=== PATIENT | female | born 1975 | race Caucasian/White ===

== ENCOUNTER 2023-12-15 08:50 | Outpatient (OUT) | payer BC, SELFPAY ==
--- NOTE | 2023-12-15 08:52 | VEIN_ITS ---
Patient Name: HIPOLITO ELIAS MR#: [id number] : 1975 Exam Date: 12/15/2023 Ordering Doctor: DR MOE HEREDIA M.D. RADIOLOGY REPORT PROCEDURE: [facility]ILITY EST COMPREHENSIVE VEIN C[facility] - OFFICE VISIT INITIAL COMPARISON: None. PROGRESS NOTES: [age] year old female who presents with a 25 year history of dilated bulging veins. The patient's right leg symptoms are worse than the left. There has been a progression of symptoms over past year. This increases with prolonged leg dependency. The patient describes an improvement with rest, elevation, and compression stockings. The patient denies any signs and symptoms to suggest arterial ischemia. The patient describes a family history varicose veins on maternal side. The patient has drinking and smoking history of occasional alcohol consumption; no tobacco use. Patient has a past medical history significant for varicose veins and superficial thrombophlebitis. The patient denies a history of deep venous thrombus or pulmonary embolus. See separate history and physical for medication list. Several prior treatments for varicose veins. Current use of compression stockings. After review of nurse notes, history and physical exam I discussed at length the pathophysiology of venous hypertension and possible treatments, therapies and strategies available. We discussed at length the importance of elevating the lower extremities above the level of the heart, increased physical activity and compression stocking use. Ultrasound venous reflux study performed today was discussed at length with the patient. The report demonstrates an abnormally dilated incompetent radio script writer vein within the medial distal right thigh with a few incompetent branch is which corresponding to patient's area of repeat symptoms. PHYSICAL EXAM: The right leg demonstrates a few varicosities within distal medial thigh, multiple scattered spider veins, no ulceration, no significant edema, no skin discoloration. The left leg demonstrates a few varicosities, multiple scattered spider veins, no ulceration, no edema, no skin discoloration. Both thighs, legs and feet were symmetrically warm to the touch. Good posterior tibial and dorsalis pedis pulses were present bilaterally. VEIN/VC Facility EST Comprehensive IMPRESSION: 1. Bilateral venous insufficiency, right greater than left. 2. Bilateral lower extremity varicose veins 3. No significant lower extremity subcutaneous edema 4. No flow significant arterial disease 5. CEAP: C2, EC, AD, LA PLAN: 1. Continued use of compression stockings 2. Elevated legs and increased physical activity symptomatic relief 3. Endovenous laser ablation of the incompetent markedly dilated radio script writer vein within the distal medial right thigh which corresponds to patient's area of chronic throbbing, itching, reoccurring varicosities. This radio script writer extends directly to the femoral vein which would make treatment with microfoam chemical ablation more difficult. Endovenous laser ablation of the radio script writer is highly preferred. 4. Microfoam chemical ablation of incompetent branch saphenous varicosities in region of right thigh radio script writer vein and of left leg incompetent branch saphenous varicosities. 5. Bilateral sclerotherapy for numerous spider veins. Nurse notes, history and physical were reviewed and confirmed, see attached forms. The nurse was present throughout the physical exam and consultation Dictated by: Ancelmo Krishnan M.D. on 12/15/2023 at 10:33 Approved by: Ancelmo Krishnan M.D. on 12/15/2023 at 12:00
--- NOTE | 2023-12-15 08:52 | VEIN_ITS ---
Patient Name: HIPOLITO ELIAS MR#: [id number] : 1975 Exam Date: 12/15/2023 Ordering Doctor: DR MOE HEREDIA M.D. RADIOLOGY REPORT PROCEDURE: VC EXT VENOUS REFLUX CORINNE LMTD COMPARISON: None. INDICATIONS: I83.813 Bilateral painful varicose veins TECHNIQUE: Duplex imaging of the lower extremity to assess the deep and superficial venous system for the presence of deep or superficial venous incompetence and to document the location and severity of disease. The study includes evaluation of the great saphenous vein (GSV), anterior accessory saphenous vein (AASV) and small saphenous vein (SSV). Patient scanned in reverse Trendelenburg and standing. FINDINGS: RIGHT LOWER EXTREMITY: Saphenofemoral Junction Reflux: YesNo 4.9mm 1.4 sec GSV: Diam (mm) Reflux/ Time (sec) Proximal Thigh N/A Mid Thigh N/A Distal Thigh N/A Prox Calf N/A Mid Calf N/A Saphenopopliteal Junction Reflux: N/A SSV: Proximal Calf N/A Mid Calf 1.3 No AASV: Not present Proximal Thigh Mid Thigh Distal Thigh Thrombi: No acute pr chronic thrombus visualized Compressibility: Normal Flow: Normal Preforator: Dist/med thigh 6.3mm with 1.0s reflux. Tech Note: GSV was previously stripped. SSV treated with prior Varithena treatment. No patent varicose vein visualized. LEFT LOWER EXTREMITY: Saphenofemoral Junction Reflux: No 6.2 mm sec GSV: Diam (mm) Reflux/Time (sec) Proximal Thigh No Mid Thigh Distal Thigh Prox Calf Mid Calf Saphenopopliteal Junction Relux: 4.0 mm No SSV: Proximal Calf 2.3 No Mid Calf 2.3 No AASV: Not present Proximal Thigh Mid Thigh Distal Thigh Thrombi: No acute or chronic thrombus visualized Compressibility: Normal Flow: Normal Credit Or Loans Officer:Mid/med calf 2.9mm with 0.9s reflux. Tech Note: GSV was previously treated. Patent varicose vein mid/med thigh 3.6mm with 1.7s reflux. Patent varicose vein 3.5mm with 0.7s reflux. CONCLUSION: 1. Abnormally dilated incompetent applications development consultant vein within distal medial right thigh patient's area of discomfort. 2. Several mildly dilated and incompetent branch saphenous varicosities bilaterally. Dictated by: Ancelmo Krishnan M.D. on 12/15/2023 at 09:34 Approved by: Ancelmo Krishnan M.D. on 12/15/2023 at 10:33
== END 2023-12-15 08:51 | disposition home or self-care (01) ==
LOC: VC 08:50
PROVIDERS: PCP Radiology Diagnostic Radiology; Visit Provider Radiology Diagnostic Radiology
DX: I83.813 Varicose veins of bilateral lower extremities with pain (principal)
CPT/HCPCS: 93970; G0463

== ENCOUNTER 2024-02-10 12:56 | Outpatient (OUT) | payer BC, SELFPAY ==
--- NOTE | 2024-02-10 13:00 | VEIN_ITS ---
[address] [address] Patient Name: HIPOLITO ELIAS MRN: [id number] date: 1975 Sex: F Assigned Patient Location: Current Patient Location: Accession/Order Number: [id number] Exam Date: 02/10/2024 13:00 Report Date: 02/10/2024 14:31 At the request of: MOE HEREDIA Procedure: VC INJ Foam Sclerosant WUS KOSHER DIETARY SERVICE MANAGER PROCEDURE: VC INJ Foam Sclerosant WUS KOSHER DIETARY SERVICE MANAGER HISTORY: I8.813 Bilateral leg painful varicose veins Pre-operative Diagnosis: CEAP class C2 venous insufficiency with pain, tenderness, edema and incompetent branch saphenous vein(s), chronic venous insufficiency right leg secondary to venous incompetence Post-operative Diagnosis: CEAP class C2 venous insufficiency with pain, tenderness, edema and incompetent branch saphenous vein(s), chronic venous insufficiency right leg secondary to venous incompetence Procedure Performed: 1. Ultrasound-guided microfoam chemical ablation with Varithenaregistered 2. Intraoperative ultrasound guidance Physician: Ancelmo Krishnan M.D. Anesthesia: None Indications for Procedure: 48 year old female. Symptoms including lower extremity pain, throbbing, dilated bulging veins for many years despite conservative medical therapy including medical compression stockings, exercise and analgesics. Prior procedures include microfoam chemical ablation. Multiple incompetent varicosities of the right leg. Duplex scan showed reflux and enlarged diameters up to 5 mm. The patient underwent informed consent including management options where the complications of infection, bleeding, pain, and skin injury were discussed. Particular attention was spent discussing thrombus extension and deep vein thrombosis as well as the possibility of pulmonary embolus and treatment with oral or injectable blood thinners. Procedure: The patient walked to the procedure room. All applicable staff donned appropriate apparel. A procedure timeout was performed to confirm correct patient, correct extremity, correct procedure, and correct room set-up including presence of all applicable supplies, devices, and drugs. A duplex ultrasound, performed by myself confirmed the location and incompetence of branch saphenous varicosities and their course was marked on the skin together with the dilated tributaries. The extent of treatment of the vein and the associated varicosities was determined through ultrasound mapping. The skin was prepped and then punctured with a butterfly needle and advanced under ultrasound guidance. The Varithenaregistered canister was activated and the canister was primed and purged as required in the instructions for use. Varithenaregistered was drawn into a sterile syringe. Varithenaregistered was slowly administered at 0.5-1.0 cc/second with close observation by ultrasound of its course in the vessels. Total volume utilized was: 10 mL (6 mL into a 5 mm varicosity anterior lateral proximal lower leg; 4 mL into a 4 mm varicosity posterior mid calf). Following administration of Varithenaregistered the leg was elevated and the patient was asked to repeatedly dorsiflex the ankle to limit flow of Varithenaregistered into perforating veins. Once appropriate spasm had been confirmed in the treated veins, the vascular catheter was removed from the leg and light pressure was applied over the puncture site for hemostasis. The common femoral and deep superficial veins were then evaluated for flow and compressibility prior to dressing placement. The lower extremity was kept elevated at 45 degrees above the horizontal and cording material was applied over the saphenous segments and tributaries to allow for eccentric compression over the target vessels including the targeted saphenous vein(s). A multilayer dressing was applied consisting of foam pads, coban and thigh-high 20-30 mm Hg compression elastic support hose were placed on the patient. The leg was lowered only after compression had been applied and the patient was immediately ambulatory. The patient ambulated 10 minutes under supervision and was without apparent concerns at time of release. Post-care instructions include advising patient to keep post-treatment bandages in place and dry for 48 hours, avoid extended periods of inactivity, avoid heavy exercise for one week, wear compression stockings on the treated leg continuously for two weeks, to walk daily for 10 minutes over the next month. The patient was instructed to take an anti-inflammatory medicine as needed and to follow up for color duplex scan of the Saphenous veins, the treated branch saphenous varicosities, the adjacent deep veins, and additional treatment within 7 days. PERSONNEL: Theo Doyle RN and Essence Marion RDMS, RVT Electronically authenticated by: ANCELMO KRISHNAN Date: 02/10/2024 14:31
== END 2024-02-10 12:57 | disposition home or self-care (01) ==
LOC: VC 12:56
PROVIDERS: PCP Radiology Diagnostic Radiology; Visit Provider Radiology Diagnostic Radiology
DX: I83.813 Varicose veins of bilateral lower extremities with pain (principal)
CPT/HCPCS: 36466

== ENCOUNTER 2024-02-16 14:55 | Outpatient (OUT) | payer BC, SELFPAY ==
--- NOTE | 2024-02-16 14:57 | VEIN_ITS ---
Patient Name: HIPOLITO ELIAS MR#: [id number] : 1975 Exam Date: 02/16/2024 Ordering Doctor: DR MOE HEREDIA M.D. RADIOLOGY REPORT PROCEDURE: FACILITY EST LMTD VEIN CENTER - OFFICE VISIT FOLLOW UP COMPARISON: None. PROGRESS NOTES: The patient reports improvement in leg symptoms. There has been interval reduction in varicosities. The patient has followed our recommendations to walk 20-30 minutes once or twice per day since the procedure. Physical exam demonstrates decrease in varicosities of the leg. No significant varicosities remain. Scattered spider veins are visible bilaterally. Review of the ultrasound performed the same day demonstrates occlusive thrombus extending throughout the treated vein(s), see separate report, consistent with a successful ablation. No thrombus extending into or beyond the saphenofemoral junction. No additional treatment of incompetent branch saphenous varicosities is needed at this time. There are scattered spider veins that the patient is considering treating. VEIN/ Facility EST LMTD IMPRESSION: 1. Successful ablation of the right leg treated branch saphenous vein(s). 2. No remaining superficial varicose veins in need of treatment.. PLAN: Scattered spider veins remain. Nurse notes, history and physical were reviewed and confirmed, see attached forms. The nurse was present throughout the physical exam and consultation Dictated by: Ancelmo Krishnan M.D. on 02/16/2024 at 16:13 Approved by: Ancelmo Krishnan M.D. on 02/16/2024 at 16:15
--- NOTE | 2024-02-16 14:57 | VEIN_ITS ---
Patient Name: HIPOLITO ELIAS MR#: [id number] : 1975 Exam Date: 02/16/2024 Ordering Doctor: DR MOE HEREDIA M.D. RADIOLOGY REPORT PROCEDURE: VC EXT VENOUS RT LMTD COMPARISON: None. INDICATIONS: Phlebitis of superficial veins of rt lower extremity I80.01 TECHNIQUE: Lower extremity brewer scale and Duplex Doppler evaluation of the deep venous system from the inguinal ligament through the calf veins. FINDINGS: REGION: Right lower extremity. THROMBI: Negative for DVT. Varithena induced thrombus visualized at prox/posterior knee and anterior knee COMPRESSIBILITY: Non-compressible segments corresponding to thrombus FLOW: Areas of no flow corresponding to thrombus OTHER: No patent varicose veins remain. CONCLUSION: 1. Successful post ablation occlusion of right leg treated branch saphenous varicosities. Dictated by: Ancelmo Krishnan M.D. on 02/16/2024 at 16:12 Approved by: Ancelmo Krishnan M.D. on 02/16/2024 at 16:13
--- OUTSIDE RECORDS SUMMARY | 2024-02-16 15:15 | XMS_ITS | CCD ---
Author Organization [facility] Care Team Providers Care Termite Control Representative Name Role Phone HOMAFAR, SOGHRA Unavailable Unavailable ZULEIKA ORLANDO Unavailable Unavailable Bittennighat, Kamron Mckeon Unavailable Unavailable Joanna De La Rosa Unavailable Unavailable Homafar, Soghra Unavailable Unavailable Unknown, Referring Provider Unavailable Unav ailable Bitisra, Kamron Unavailable Unavailable Homafar, Soghra Unavailable Unavailable Homafar, Soghra Unavailable Unavailable Kamron Robb Unavailable Unavailable Unavailable GIOVANNA, DR MOE Srinivasan Attending Unavailable WEST, DR MOE Srinivasan Consulting Unavailable WEST, DR MOE Srinivasan Admitting Unavailable WEST, DR MOE Srinivasan Consulting Unavailable WEST, DR MOE Srinivasan Admitting Unavailable WEST, DR MOE Srinivasan Attending Unavailable SOUMYAEBRU, DR ANCELMO Busch Consulting Unavailable WEST, DR MOE Srinivasan Attending Unavailable WEST, DR MOE Srinivasan Admitting Unavailable WEST, DR MOE Srinivasan Consulting Unavailable WEST, DR MOE Srinivasan Admitting Unavailable WEST, DR MOE Srinivasan Attending Unavailable Unavailable Unavailable Homafar, Soghra Referring Unavailable Bittence, Dr. Kamron Ramirez Primary Care U navailable Homafar, Sonanette Attending Unavailable Bittennighat, Dr. Kamron Ramirez Primary Care U navailable Homafar, Sonanette Attending Unavailable HomaSydni rodgers MD Unavailable Kamron Robb MD Primary Care Provider [phone] KAMRON ROBB Attending Unavailable AKMRON ROBB Primary Care Unavailable Allergies Allergy Classification Reported Allergen(s) Allergy Type Date of Onset Reaction(s) Facility Penicillins (antibiotic) (2 sources) Penicillins; Translations: [Penicillins] Drug Allergy [facility] Work Phone: (10 sources) Penicillins; Translations: [Penicillins] drug allergy 02-13-2024 [facility] 3 Repository (1 source) Penicillins Drug Allergy 02-13-2024 [facility] Medications Current Medications Medication Drug Class(es) Dates Sig (Normalized) Sig (Original) esomeprazole 20 mg delayed release oral capsule (12 sources) Proton Pump Inhibitor Start: 07-10-2019 take 1 capsule by mouth once daily esomeprazole (NexIUM) [address] capsule Take 1 capsule (20 mg) by mouth once daily. 07/10/2019 Active Completed/Discontinued Medications Medication Drug Class(es) Dates Sig (Normalized) Sig (Original) acetaminophen 325 mg / HYDROcodone bitartrate 5 mg oral tablet (12 sources) Opioid Agonist Start: 04-14-2020 End: 04-12-2023 take 1 tablet by mouth every four to six hours as needed for pain HYDROcodone-Aceta minophen 5-325 MG Oral Tablet TAKE 1 TABLET EVERY 4 TO 6 HOURS NEEDED FOR PAIN. Quantity: 12 Refills: 0 Ordered: 11-Sep-2021 Sydni Mariano MD Start : 14-Apr-2020 End : 12-Apr-2023 Complete azithromycin 250 mg oral tablet (4 sources) Macrolide Antimicrobial Start: 10-03-2020 Azithromycin 250 MG Oral Tablet TAKE 2 TABLETS ON DAY 1 THEN TAKE 1 TABLET A DAY FOR 4 DAYS. Quantity: 1 Refills: 0 Ordered: 03-Oct-2020 Kamron Robb MD Start : 03-Oct-2020 Active ergocalciferol 1.25 mg oral capsule (11 sources) Provitamin D2 Compound take 1 capsule by mouth once Vitamin D (Ergocalciferol) 1.25 MG (40799 UT) Oral Capsule Quantity: 0 Refills: 0 Ordered: 28-Aug-2019 DO Active Vitamin D (Ergoc alciferol) 1.25 MG (85341 UT) Oral Capsule Refills: 0 Active Problems Active Problems Problem Classification Problem Date Documented Da te Episodic/Chronic Abdominal pain (11 sources) Pain in female pelvis; Translations: [Unspecified symptom associated with female genital organs] Episodic Cancer of cervix (11 sources) Atypical squamous cells of undetermined significance on cervical Papanicolaou smear; Translations: [Papanicolaou smear of cervix with atypical squamous cells of undetermined significance (ASC-US)] Episodic Disorders of lipid metabolism (12 sources) Mixed hyperlipidemia; Translations: [Mixed hyperlipidemia] Onset: 4 02-13-2024 Chronic Esophageal disorders (1 source) Gastro-esophageal reflux disease with esophagitis; Translations: [Gastroesophageal reflux disease with esophagitis without hemorrhage] 02-13-2024 Chronic Esophageal disorders (2 sources) Esophageal disorders; Translations: [Gastro-esophageal reflux disease with esophagitis, without bleeding] Onset: 4 Immunizations and screening for infectious disease (20 sources) Influenza vaccination given; Translations: [Need for prophylactic vaccination and inoculation against influenza] Onset: 3 Episodic Menstrual disorders (10 sources) Dysmenorrhea; Translations: [Dysmenorrhea] Chronic Nutritional deficiencies (11 sources) Vitamin D deficiency; Translations: [Unspecified vitamin D deficiency] Chronic Nutritional deficiencies (2 sources) Decreased vitamin D; Translations: [History of Low vitamin D level] Episodic Other diseases of veins and lymphatics (1 source) Vascular insufficiency; Translations: [Venous insufficiency (chronic) (peripheral)] Onset: 4 02-13-2024 Episodic Other gastrointestinal disorders (11 sources) Heartburn; Translations: [Heartburn] Episodic Other nutritional; endocrine; and metabolic disorders (11 sources) H/O: raised blood lipids; Translations: [Personal history of other endocrine, metabolic, and immunity disorders] Episodic Other upper respiratory infections (10 sources) Acute bacterial sinusitis; Translations: [Acute sinusitis, unspecified] Episodic Phlebitis; thrombophlebitis and thromboembolism (4 sources) Phlebitis and thrombophlebitis of superficial vessels of right lower extremity; Translations: [PHLEBITIS AND TP SUP VES RT LOW EXT] Onset: 3 Episodic Unclassified (20 sources) Encounter for screening mammogram for malignant neoplasm of breast; Translations: [Patient encounter status] Onset: 7 Episodic Unclassified (1 source) Unknown / UNK(Unknown) Onset: 7 Varicose veins of lower extremity (15 sources) Varicose veins of lower extremity; Translations: [Asymptomatic varicose veins] Onset: 3 Episodic Viral infection (20 sources) Human papilloma virus infection; Translations: [Other specified viral infection] Episodic Past or Other Problems Problem Classification Problem Date Documented Da te Episodic/Chronic Unclassified (1 source) Z12.31 ROUTINE MAMMOGRAM SCREENING XR Onset: 04-12-2017 Unclassified (2 sources) Cancer cervix screening status; Translations: [Cervical cancer screening] Unclassified (5 sources) Patient encounter status; Translations: [Visit for screening mammogram] Unclassified (2 sources) Influenza vaccination given; Translations: [Influenza vaccination administered at current visit] Unclassified (1 source) Onset: 02-13-2024 02-13-2024 NEGATED: Highlighted row has not occurred!Residual codes; unclassified (8 sources) Disease Episodic Results Test Name Value Interpretation Reference Range Facility CBC W Auto Differential pane l (Bld)on 02-13-2024 Basophils (Bld) [#/Vol] 0.04 10*3/uL [facility] Basophils/100 WBC (Bld) 0.6 % 0.0 - 2.0 % [facility] Eosinophils (Bld) [#/Vol] 0.06 10*3/uL [facility] Eosinophils/100 WBC (Bld) 0.9 % 0.0 - 6.0 % [facility] Erythrocyte distribution width (RBC) [Ratio] 16.3 % High 11.5 - 14.5 % [facility] Hematocrit (Bld) [Volume fraction] 36.8 % 36.0 - 46.0 % [facility] Hemoglobin (Bld) [Mass/Vol] 11.3 g/dL Low 12.0 - 16.0 g/dL [facility] Immature granulocytes (Bld) [#/Vol] 0.03 10*3/uL [facility] Immature granulocytes/100 WBC (Bld) 0.4 % 0.0 - 0.9 % [facility] Comment on above: Immature Granulocyte Count (IG) includes promyelocytes, myelocytes and metamyelocytes but does not include bands. Percent differential counts (%) should be interpreted in the context of the absolute cell counts (cells/UL). Interpretation and review of laboratory results Abnormal [facility] Lymphocytes (Bld) [#/Vol] 1.60 10*3/uL [facility] Lymphocytes/100 WBC (Bld) 23.2 % 13.0 - 44.0 % [facility] MCH (RBC) [Entitic mass] 24.1 pg Low 26.0 - 34.0 pg [facility] MCHC (RBC) [Mass/Vol] 30.7 g/dL Low 32.0 - 36.0 g/dL [facility] MCV (RBC) [Entitic vol] 79 fL Low 80 - 100 fL [facility] Monocytes (Bld) [#/Vol] 0.47 10*3/uL [facility] Monocytes/100 WBC (Bld) 6.8 % 2.0 - 10.0 % [facility] Neutrophils (Bld) [#/Vol] 4.69 10*3/uL [facility] Comment on above: Percent differential counts (%) should be interpreted in the context of the absolute cell counts (cells/uL). Neutrophils/100 WBC (Bld) 68.1 % 40.0 - 80.0 % [facility] Nucleated RBC/100 WBC (Bld) [Ratio] 0.0 % [facility] Platelets (Bld) [#/Vol] 331 10*3/uL [facility] RBC (Bld) [#/Vol] 4.68 10*6/uL [facility] WBC (Bld) [#/Vol] 6.9 10*3/uL [facility] Basophils (Bld) [#/Vol] 0.04 x10*3/uL Normal 0.00-0.[address] [facility] Comment on above: Performed By: #### 5 7021-8 #### KIEL Layne ([id number]) [facility] ([facility] [place], [place]) [address] [place] [address] 64709 Basophils/100 WBC (Bld) 0.6 % Normal 0.0-2.[address] [facility] Comment on above: Performed By: #### 5 7021-8 #### KIEL Layne ([id number]) [facility] ([facility] [place] [place]) [address] [place] [address] 85887 Eosinophils (Bld) [#/Vol] 0.06 x10*3/uL Normal 0.00-0.[address] [facility] Comment on above: Performed By: #### 5 7021-8 #### KIEL Layne ([id number]) [facility] ([facility] [place] [place]) [address] [place] [address] Eosinophils/100 WBC (Bld) 0.9 % Normal 0.0-6.[address] [facility] Comment on above: Performed By: #### 5 7021-8 #### KIEL Layne ([id number]) [facility] ([facility] [place] [place]) [address] [place] [address] Erythrocyte distribution width (RBC) [Ratio] 16.3 % High 11.5-14.[address] [facility] Comment on above: Performed By: #### 5 7021-8 #### KIEL Layne ([id number]) [facility] ([facility] [place] [place]) [address] [place] [address] Hematocrit (Bld) [Volume fraction] 36.8 % Normal 36.0-46.[address] [facility] Comment on above: Performed By: #### 5 7021-8 #### KIEL Layne ([id number]) [facility] ([facility] [place] [place]) [address] [place] [address] 14445 Hemoglobin (Bld) [Mass/Vol] 11.3 g/dL Low 12.0-16.[address] [facility] Comment on above: Performed By: #### 5 7021-8 #### KIEL Layne ([id number]) [facility] ([facility] [place] [place]) [address] [place] [address] 19943 Immature granulocytes (Bld) [#/Vol] 0.03 x10*3/uL Normal 0.00-0.[address] [facility] Comment on above: Performed By: #### 5 7021-8 #### KIEL Layne ([id number]) [facility] ([facility] [place] [place]) [address] [place] [address] 15173 Immature granulocytes/100 WBC (Bld) 0.4 % Normal 0.0-0.[address] [facility] Comment on above: Result Comment: Marleny ture Granulocyte Count (IG) includes promyelocytes, myelocytes and metamyelocytes but does not include bands. Percent differential counts (%) should be interpreted in the context of the absolute cell counts (cells/UL). Performed By: #### 5 7021-8 #### KIEL Layne ([id number]) [facility] ([facility] [place] [place]) [address] [place] [address] Lymphocytes (Bld) [#/Vol] 1.60 x10*3/uL Normal 1.20-4.[address] [facility] Comment on above: Performed By: #### 5 7021-8 #### KIEL Layne ([id number]) [facility] ([facility] [place] [place]) [address] [place] [address] Lymphocytes/100 WBC (Bld) 23.2 % Normal 13.0-44.[address] [facility] Comment on above: Performed By: #### 5 7021-8 #### KIEL Layne ([id number]) [facility] ([facility] [place] [place]) [address] [place] [address] MCH (RBC) [Entitic mass] 24.1 pg Low 26.0-34.[address] [facility] Comment on above: Performed By: #### 5 7021-8 #### KIEL Layne ([id number]) [facility] ([facility] [place] [place]) [address] [place] [address] MCHC (RBC) [Mass/Vol] 30.7 g/dL Low 32.0-36.[address] [facility] Comment on above: Performed By: #### 5 7021-8 #### KIEL Layne ([id number]) [facility] ([facility] [place] [place]) [address] [place] [address] MCV (RBC) [Entitic vol] 79 fL Low 80-[address] [facility] Comment on above: Performed By: #### 5 7021-8 #### KIEL Layne ([id number]) [facility] ([facility] [place] [place]) [address] [place] [address] Monocytes (Bld) [#/Vol] 0.47 x10*3/uL Normal 0.10-1.[address] [facility] Comment on above: Performed By: #### 5 7021-8 #### KIEL Layne ([id number]) [facility] ([facility] [place] [place]) [address] [place] [address] 09374 Monocytes/100 WBC (Bld) 6.8 % Normal 2.0-10.[address] [facility] Comment on above: Performed By: #### 5 7021-8 #### KIEL Layne ([id number]) [facility] ([facility] [place] [place]) [address] [place] [address] 60318 Neutrophils (Bld) [#/Vol] 4.69 x10*3/uL Normal 1.20-7.[address] [facility] Comment on above: Result Comment: Perc ent differential counts (%) should be interpreted in the context of the absolute cell counts (cells/uL). Performed By: #### 5 7021-8 #### KIEL Layne ([id number]) [facility] ([facility] [place] [place]) [address] [place] [address] 63056 Neutrophils/100 WBC (Bld) 68.1 % Normal 40.0-80.[address] [facility] Comment on above: Performed By: #### 5 7021-8 #### KIEL Layne ([id number]) [facility] ([facility] [place] [place]) [address] [place] [address] 91672 Nucleated RBC/100 WBC (Bld) [Ratio] 0.0 /100 WBCs Normal 0.0-0.[address] [facility] Comment on above: Performed By: #### 5 7021-8 #### KIEL Layne ([id number]) [facility] ([facility] [place] [place]) [address] [place] [address] 13181 Platelets (Bld) [#/Vol] 331 x10*3/uL Normal 150-[address] [facility] Comment on above: Performed By: #### 5 7021-8 #### KIEL Layne ([id number]) [facility] ([facility] [place] [place]) [address] [place] [address] 89131 RBC (Bld) [#/Vol] 4.68 x10*6/uL Normal 4.00-5.20 [facility] Comment on above: Performed By: #### 5 7021-8 #### KIEL Layne ([id number]) [facility] ([facility] [place] [place]) [address] [place] [address] 22949 WBC (Bld) [#/Vol] 6.9 x10*3/uL Normal 4.4-11.[address] [facility] Comment on above: Performed By: #### 5 7021-8 #### KIEL Layne ([id number]) [facility] ([facility] [place] [place]) [address] [place] [address] 49319 Comprehensive metabolic 2000 panelon 02-13-2024 Albumin BCP dye [Mass/Vol] 4.5 g/dL Normal 3.4-5.[address] [facility] Comment on above: Performed By: #### 2 4323-8 #### KIEL Layne ([id number]) [facility] ([facility] [place] [place]) [address] [place] [address] 06361 ALP [Catalytic activity/Vol] 52 U/L Normal 33-[address] [facility] Comment on above: Performed By: #### 2 4323-8 #### KIEL Layne ([id number]) [facility] ([facility] [place] [place]) [address] [place] [address] 74059 ALT With P-5'-P [Catalytic activity/Vol] 47 U/L High 7-[address] [facility] Comment on above: Result Comment: Apurva ents treated with Sulfasalazine may generate falsely decreased results for ALT. Performed By: #### 2 4323-8 #### KIEL Layne ([id number]) [facility] ([facility] [place] [place]) [address] [place] [address] 42817 Anion gap [Moles/Vol] 14 mmol/L Normal 10-[address] [facility] Comment on above: Performed By: #### 2 4323-8 #### KIEL Layne ([id number]) [facility] ([facility] [place] [place]) [address] [place] [address] 35482 AST With P-5'-P [Catalytic activity/Vol] 58 U/L High 9-[address] [facility] Comment on above: Performed By: #### 2 4323-8 #### KIEL Layne ([id number]) [facility] ([facility] [place] [place]) [address] [place] [address] 09639 Bilirubin [Mass/Vol] 0.7 mg/dL Normal 0.0-1.[address] [facility] Comment on above: Performed By: #### 2 4323-8 #### KIEL Layne ([id number]) [facility] ([facility] [place] [place]) [address] [place] [address] 48053 Calcium [Mass/Vol] 9.5 mg/dL Normal 8.6-10.3 [facility] Comment on above: Performed By: #### 2 4323-8 #### KIEL Layne ([id number]) [facility] ([facility] [place] [place]) [address] [place] [address] 09879 Chloride [Moles/Vol] 101 mmol/L Normal 98-[address] [facility] Comment on above: Performed By: #### 2 4323-8 #### KIEL Layne ([id number]) [facility] ([facility] [place] [place]) [address] [place] [address] 95334 CO2 [Moles/Vol] 24 mmol/L Normal 21-32 [facility] Comment on above: Performed By: #### 2 4323-8 #### KIEL Layne ([id number]) [facility] ([facility] [place] [place]) [address] [place] [address] 74853 Creatinine [Mass/Vol] 0.65 mg/dL Normal 0.50-1.[address] [facility] Comment on above: Performed By: #### 2 4323-8 #### KIEL Layne ([id number]) [facility] ([facility] [place] [place]) [address] [place] [address] 70118 GFR/1.73 sq M.predicted MDRD (S/P/Bld) [Vol rate/Area] mL/min/{1.73_m2} Normal >[address] [facility] Comment on above: Result Comment: Calc ulations of estimated GFR are performed using the 2020 CKD-EPI Study Refit equation without the race variable for the IDMS-Traceable creatinine methods. https://faustosn.asnjournals.org/content/early//ASN.55479392 88 Performed By: #### 2 4323-8 #### KIEL Layne ([id number]) [facility] ([facility] [place] [place]) [address] [place] [address] 64397 Glucose [Mass/Vol] 95 mg/dL Normal 74-99 [facility] Comment on above: Performed By: #### 2 4323-8 #### KIEL Layne ([id number]) [facility] ([facility] [place] [place]) [address] [place] [address] 36169 Potassium [Moles/Vol] 3.9 mmol/L Normal 3.5-5.[address] [facility] Comment on above: Performed By: #### 2 4323-8 #### KIEL Layne ([id number]) [facility] ([facility] [place] [place]) [address] [place] [address] 06757 Protein [Mass/Vol] 7.8 g/dL Normal 6.4-8.2 [facility] Comment on above: Performed By: #### 2 4323-8 #### KIEL Layne ([id number]) [facility] ([facility] [place] [place]) [address] [place] [address] 03798 Sodium [Moles/Vol] 135 mmol/L Low 136-145 [facility] Comment on above: Performed By: #### 2 4323-8 #### KIEL Layne ([id number]) [facility] ([facility] [place] [place]) [address] [place] [address] 02392 Urea nitrogen [Mass/Vol] 10 mg/dL Normal 6-[address] [facility] Comment on above: Performed By: #### 2 4323-8 #### KIEL Layne ([id number]) [facility] ([facility] [place] [place]) [address] [place] [address] 90902 HbA1c (Bld) [Mass fraction]o n 02-13-2024 Average glucose Estimated from glycated hemoglobin (Bld) [Mass/Vol] 134 mg/dL Normal Not Established [facility] Comment on above: Order Comment: Diagn osis of Diabetes-Adults Non-Diabetic: < or = 5.6% Increased risk for developing diabetes: 5.7-6.4% Diagnostic of diabetes: > or = 6.5% Monitoring of Diabetes Age (y)....................... Therapeutic Goal (%) Adults: >18.........................<7.0 Pediatrics: 13-18...................<7.5 Pediatrics: 7-12....................<8.0 Pediatrics: 0-6..................... 7.5-8.5 [place] [employer]. Diabetes Care 33(S1)Sep 2009 Performed By: #### 4 548-4 #### KIEL Layne ([id number]) [facility] ([facility] [place] [place]) [address] [place] [address] Hemoglobin A1c/Hemoglobin.to malvin 02-13-2024 HbA1c (Bld) [Mass fraction] 6.3 % High see below [facility] Comment on above: Order Comment: Diagn osis of Diabetes-Adults Non-Diabetic: < or = 5.6% Increased risk for developing diabetes: 5.7-6.4% Diagnostic of diabetes: > or = 6.5% Monitoring of Diabetes Age (y)....................... Therapeutic Goal (%) Adults: >18.........................<7.0 Pediatrics: 13-18...................<7.5 Pediatrics: 7-12....................<8.0 Pediatrics: 0-6..................... 7.5-8.5 [employer]. Diabetes Care 33(S1)Sep 2009 Performed By: #### 4 548-4 #### KIEL Layne ([id number]) [facility] ([facility] [place] [place]) [address] [place] [address] 13350 Lipid 1996 panelon 4 Cholesterol [Mass/Vol] 274 mg/dL High 0-[address] [facility] Comment on above: Result Comment: Age Desirable Borderline High High 0-19 Y 0 - 169 170 - 199 >/= 200 20-24 Y 0 - 189 190 - 224 >/= 225 >24 Y 0 - 199 200 - 239 >/= 240 All ranges are based on fasting samples. Specific therapeutic targets will vary based on patient-specific cardiac risk. Pediatric guidelines reference:Pediatrics 2011, 128(S5).Adult guidelines reference: NCEP ATPIII Guidelines,STEWART 2001, 258:2486-97 Venipuncture immediately after or during the administration of Metamizole may lead to falsely low results. Testing should be performed immediately prior to Metamizole dosing. Performed By: #### 2 4331-1 #### KIEL Layne ([id number]) [facility] ([facility] [place] [place]) [address] [place] [address] 44530 Cholesterol in HDL [Mass/Vol] 55.2 mg/dL Normal [facility] Comment on above: Result Comment: Age Very Low Low Normal High 0-19 Y < 35 < 40 40-45 ---- 20-24 Y ---- < 40 >45 ---- >24 Y ---- < 40 40-60 >60 Performed By: #### 2 4331-1 #### KIEL Layne ([id number]) [facility] ([facility] [place] [place]) [address] [place] [address] 98995 Cholesterol in LDL [Mass/Vol] 143 mg/dL High <=[address] [facility] Comment on above: Result Comment: Near Borderline AGE Desirable Optimal High High Very High 0-19 Y 0 - 109 --- 110-129 >/= 130 ---- 20-24 Y 0 - 119 --- 120-159 >/= 160 ---- >24 Y 0 - 99 100-129 130-159 160-189 >/=190 Performed By: #### 2 4331-1 #### KIEL Layne ([id number]) [facility] ([facility] [place] [place]) [address] [place] [address] 69083 Cholesterol in VLDL [Mass/Vol] 76 mg/dL High 0-[address] [facility] Comment on above: Performed By: #### 2 4331-1 #### KIEL Layne ([id number]) [facility] ([facility] [place] [place]) [address] [place] [address] 05487 CHOLESTEROL/HDL RATIO 5.[address] [facility] Comment on above: Result Comment: Ref Values Desirable < 3.4 High Risk > 5.0 Performed By: #### 2 4331-1 #### KIEL Layne ([id number]) [facility] ([facility] [place] [place]) [address] [place] [address] 63572 NON HDL CHOLESTEROL 219 mg/dL High 0-[address] [facility] Comment on above: Result Comment: Age Desirable Borderline High High Very High 0-19 Y 0 - 119 120 - 144 >/= 145 >/= 160 20-24 Y 0 - 149 150 - 189 >/= 190 ---- >24 Y 30 mg/dL above LDL Cholesterol goal Performed By: #### 2 4331-1 #### KIEL Layne ([id number]) [facility] ([facility] [place] [place]) [address] [place] [address] 60002 Triglyceride [Mass/Vol] 379 mg/dL High 0-[address] [facility] Comment on above: Result Comment: Age Desirable Borderline High High Very High 0 D-90 D 19 - 174 ---- ---- ---- 91 D- 9 Y 0 - 74 75 - 99 >/= 100 ---- 10-19 Y 0 - 89 90 - 129 >/= 130 ---- 20-24 Y 0 - 114 115 - 149 >/= 150 ---- >24 Y 0 - 149 150 - 199 200- 499 >/= 500 Venipuncture immediately after or during the administration of Metamizole may lead to falsely low results. Testing should be performed immediately prior to Metamizole dosing. Performed By: #### 2 [id number] #### KIEL Layne ([id number]) [facility] ([facility] – [place], [place]) [address] [place] [address] TSH WITH REFLEX TO FREE T4 I F ABNORMALon 02-13-2024 TSH Qn 2.04 m[IU]/L Normal 0.44-3.[address] [facility] Comment on above: Order Comment: TSH t esting is performed using different testing methodology at [facility] than at other [facility]. Direct result comparisons should only be made within the same method. Performed By: #### T HYDS #### KIEL Layne ([id number]) [facility] ([facility] – [place], [place]) [address] [place] [address] LMPon 04-12-2023 Last menstrual period start date 20Mar2023 [employer] Work Phone: Laboratory - Cytologyon Cytology report Cyto stain.thin prep Doc (Cvx/Vag) [employer] Work Phone: VC CONSULT FOLLOWUPon 2022 VC CONSULT FOLLOWUP Patient: JOANNA ELIAS Exam Date: 12/27/2022 : 1975 Gender:F Ordering : DR MOE HEREDIA M.D. Admission #: [id number] Family : Order #: [id number] CLICK HERE TO VIEW EXAM RADIOLOGY REPORT PROCEDURE: VEIN CENTER CONSULTATION FOLLOWUP VEIN CENTER - OFFICE VISIT FOLLOW UP COMPARISON: None. PROGRESS NOTES: The patient reports no significant difficulty following micro foam chemical ablation the right leg. The patient did not require oral analgesics. The patient has worn her compression stocking as directed. The patient has followed our recommendations to walk 20-30 minutes once or twice per day since the procedure. The patient reports some mild discomfort of the right medial thigh and knee, physical exam demonstrates thrombosed veins related to micro foam chemical ablation. Some mild hemosiderin staining was discussed with the patient. Review of the ultrasound performed the same day demonstrates occlusive thrombus extending throughout the treated right leg varicose veins. The patient expressed a desire to proceed with treatment of incompetent left leg varicose veins. IMPRESSION: 1. Successful ablation of incompetent right leg varicose veins 2. Persistent incompetent left leg varicose veins PLAN: Micro foam chemical ablation of the left leg Nurse notes, history and physical were reviewed and confirmed, see attached forms. The nurse was present throughout the physical exam and consultation Dictated by: Moe Heredia MD on 12/27/2022 at 14:51 Approved by: Moe Heredia MD on 12/27/2022 at 14:57 Normal [facility] VC EXT VENOUS RT LIMITEDon 0 12-27-2022 VC EXT VENOUS RT LIMITED Patient: JOANNA ELIAS Exam Date: 12/27/2022 : 1975 Gender:F Ordering : DR MOE HEREDIA M.D. Admission #: [id number] Family : Order #: [id number] CLICK HERE TO VIEW EXAM RADIOLOGY REPORT PROCEDURE: VEIN CENTER EXTREMITY VENOUS RIGHT LIMITED COMPARISON: None. INDICATIONS: Phlebitis of superficial veins of lower extremity I80.01 TECHNIQUE: Lower extremity brewer scale and Duplex Doppler evaluation of the deep venous system from the inguinal ligament through the calf veins. FINDINGS: REGION: Right lower extremity. THROMBI: Negative for DVT. Varithena induced thrombus visualized at mid/med thigh, dist/med calf, prox/med calf, and prox-distal SSV. COMPRESSIBILITY: Non-compressible segments corresponding to the. FLOW: Absent flow corresponding to the OTHER: No patent varicose veins remain. *Exam performed in accordance with [facility] practice guidelines- Peripheral venous ultrasound, December 06, 2009. CONCLUSION: Post ablation occlusion treated right leg incompetent varicose veins Dictated by: Moe Heredia MD on 12/27/2022 at 14:23 Approved by: Moe Heredia MD on 12/27/2022 at 14:24 Normal [facility] VC INJ FOAM SCLERO W US MLTI on 12-16-2022 VC INJ FOAM SCLERO W US MLTI Patient: JOANNA ELIAS Exam Date: 12/16/2022 : 1975 Gender:F Ordering : DR MOE HEREDIA M.D. Admission #: [id number] Family : Order #: [id number] CLICK HERE TO VIEW EXAM RADIOLOGY REPORT PROCEDURE: VEIN CENTER INJECTION FOAM SCLEROSING SOLUTION WITH ULTRASOUND MULTIPLE VEINS COMPARISON: None. Pre-operative Diagnosis: CEAP class C2 venous insufficiency with pain, tenderness, edema and incompetent varicose veins, chronic venous insufficiency right leg secondary to venous incompetence Post-operative Diagnosis: CEAP class C2 venous insufficiency with pain, tenderness, edema and incompetent varicose veins, chronic venous insufficiency right leg secondary to venous incompetence Procedure Performed: 1. Ultrasound-guided microfoam chemical ablation with Varithena(r) 2. Intraoperative ultrasound guidance Physician: Moe Heredia M.D. Anesthesia: None Indications for Procedure: 46-year-old female who presents with a 23 year history of lower extremity varicose veins . The patient previously had both vein stripping and intravenous laser ablation the presents with progression vein disease. The patient failed conservative medical therapy including medical compression stockings, exercise and analgesics. Multiple incompetent varicosities of the right leg. Duplex scan showed reflux and enlarged diameters up to 7 mm. Patient has multiple large incompetent sling operator veins, treatment was declined by her insurance company. Increase risk of deep vein thrombus was discussed with the patient although care was taken to prevent flow through the sling operator veins throughout this procedure The patient underwent informed consent including management options where the complications of infection, bleeding, pain, and skin injury were discussed. Particular attention was spent discussing thrombus extension and deep vein thrombosis as well as the possibility of pulmonary embolus and treatment with oral or injectable blood thinners. Procedure: The patient walked to the procedure room. All applicable staff donned appropriate apparel. A procedure timeout was performed to confirm correct patient, correct extremity, correct procedure, and correct room set-up including presence of all applicable supplies, devices, and drugs. A duplex ultrasound, performed by myself confirmed the location and incompetence of right leg varicose veins and their course marked on the skin together with the dilated tributaries. The extent of treatment of the vein and the associated varicosities was determined through ultrasound mapping. The patient was placed on the operating room table. The limb was prepped. The skin was punctured with a butterfly needle through the skin with the venous access needle and advanced under ultrasound guidance. The target limb was positioned at 45 degrees of elevation in relation to the torso utilizing a foam pad. The Varithena(r) canister was previously activated and the canister was primed and purged as required in the instructions for use. The following injections were made: 6 mL aliquot of Varithena(r) was drawn into a sterile syringe. Injection into a 7 mm varicose vein distal medial right lower leg 4 mL aliquot of Varithena(r) was drawn into a sterile syringe. Injection into a 5 mm varicose vein proximal medial right lower leg 3 mL aliquot of Varithena(r) was drawn into a sterile syringe. Injection into a 4 mm varicose vein mid medial right thigh 2 mL aliquot of Varithena(r) was drawn into a sterile syringe. Injection into a 3 mm varicose vein mid anterior right lower leg Varithena(r) was slowly administered at 0.5-1.0 cc/second with close observation by ultrasound of its course in the injected veins. A total volume of 15 mL of Varithena(r) was used. During administration of Varithena(r), the patient was asked to dorsiflex the ankle to limit flow of Varithena(r) into perforating veins. Once appropriate spasm had been confirmed in the treated veins, the vascular catheter was removed from the leg and light pressure was applied over the puncture site for hemostasis The common femoral and deep superficial veins were then evaluated for flow and compressibility prior to dressing placement. The lower extremity was kept elevated at 45 degrees above the horizontal and cording material was applied over the saphenous segments and tributaries to allow for eccentric compression over the target vessels including the targeted saphenous vein(s). A multilayer dressing was applied consisting of foam pads, coban and thigh-high 20-30 mm Hg compression elastic support hose were placed on the patient. The leg was lowered only after compression had been applied and the patient was immediately ambulatory. The patient ambulated 10 minutes under supervision and was without apparent concerns at time of release Post-care instructions include advising patient to keep post-treatment ban (more content not included)... Normal [facility] Lab - AP Resultson Lab - AP Results [id number]#[id number] 0OTGTIFF [facility] T-Spoton 02-12-2022 T-Spot See Report [facility] Comment on above: Performed By: #### 3 [id number] #### [facility] (DEFAULT) [address] [id number] Lab - Toxicology Resultson 0 02-11-2022 Lab - Toxicology Results [id number]#[id number] 0OTGTIFF [facility] Nicotine Metabolite, Urine L Con 02-11-2022 Cotinine LC Negative Invalid Interpretation Code [id number] [facility] Comment on above: Result Comment: Perf ormed At: [facility] [place] [address] [place], [place] [id number] Damaris George PhD Ph:[phone] Performed By: #### 1 [id number] #### [facility] (DEFAULT) [address] [place] [address] HBSab Qnt LCon 02-10-2022 Hep B Surf Ab Quant LC >1000.0 Invalid Interpretation Code Immunity>9.9 [facility] Comment on above: Result Comment: Stat us of Immunity Anti-HBs Level Inconsistent with Immunity 0.0 - 9.9 Consistent with Immunity >9.9 Performed At: [address] [id number] Fredy Lim PhD Ph:[phone] Performed By: #### 3 [id number] #### [facility] (DEFAULT) [address] [place] [address] Measles/Mumps/Rubella Immuni ty LCon 02-10-2022 Mumps Abs, IgG LC 248.0 AU/mL Invalid Interpretation Code Immune >10.9 [facility] Comment on above: Result Comment: Nega tive <9.0 Equivocal 9.0 - 10.9 Positive >10.9 A positive result generally indicates past exposure to Mumps virus or previous vaccination. Performed At: [address] [id number] Fredy Lim PhD Ph:[phone] Performed By: #### 3 [id number] #### [facility] (DEFAULT) [address] [place] [id number] Rubella Antibodies, IgG LC 5.93 index Invalid Interpretation Code Immune >0.99 [facility] Comment on above: Result Comment: Non- immune <0.90 Equivocal 0.90 - 0.99 Immune >0.99 Performed By: #### 3 [id number] #### [facility] (DEFAULT) [address] [place] [address] Rubeola Ab, IgG, EIA LC 111.0 AU/mL Invalid Interpretation Code Immune >16.4 [facility] Comment on above: Result Comment: Nega tive <13.5 Equivocal 13.5 - 16.4 Positive >16.4 Presence of antibodies to Rubeola is presumptive evidence of immunity except when acute infection is suspected. Performed By: #### 3 [id number] #### [facility] (DEFAULT) [address] [place] [address] VC COMP CONSULTATIONon 02-04 VC COMP CONSULTATION Patient: JOANNA ELIAS Exam Date: 02/04/2022 : 1975 Gender:F Ordering : DR MOE HEREDIA M.D. Admission #: [id number] Family : Order #: [id number] CLICK HERE TO VIEW EXAM RADIOLOGY REPORT PROCEDURE: VC VEIN CENTER CONSULTATION VEIN CENTER - OFFICE VISIT INITIAL COMPARISON: None. PROGRESS NOTES: [age] year old female who presents with a 23 year history of bulging dilated and discolored veins, leg pain, swelling, muscle cramping and edema. Patient has undergone prior vein stripping approximately 20 years ago, and has subsequently undergone endovenous laser treatment and sclerotherapy and approximately 5 years ago. The patient's right leg symptoms are worse than the left. There has been a progression of symptoms over past 5 years. This increases with prolonged standing. The patient describes an improvement with rest and elevation. The patient denies any signs and symptoms to suggest arterial ischemia. The patient describes a family history varicose veins. The patient has drinking and smoking history of occasional alcohol consumption. No tobacco use. Patient has a past medical history significant for vein treatment only. The patient denies a history of deep venous thrombus or pulmonary embolus. See separate history and physical for medication list. Prior treatment for varicose and spider veins. Current use of compression stockings. After review of nurse notes, history and physical exam I discussed at length the pathophysiology of venous hypertension and possible treatments, therapies and strategies available. We discussed at length the importance of elevating the lower extremities above the level of the heart, increased physical activity and compression stocking use. Ultrasound venous reflux study performed today was discussed at length with the patient. The report demonstrates incompetent branch saphenous varicosities bilaterally. These are greatest within the distal medial right thigh and anterior inferior to the knee, which are fed by 2 large sling operator veins within the mid and distal thigh. PHYSICAL EXAM: The right leg demonstrates prominent varicosities, scattered spider veins, no ulceration, no edema, mild skin discoloration. The left leg demonstrates mild varicosities, a few scattered spider veins, no ulceration, no edema, no skin discoloration. Both thighs, legs and feet were symmetrically warm to the touch. Good posterior tibial and dorsalis pedis pulses were present bilaterally. IMPRESSION: 1. Bilateral venous insufficiency , right greater than left. 2. Bilateral lower extremity varicose veins 3. No lower extremity subcutaneous edema 4. No flow significant arterial disease 5. CEAP: C2, EC, AD, OR PLAN: 1. Continued use of compression stockings 2. Elevated legs and increased physical activity symptomatic relief 3. Endovenous laser treatment of the dilated incompetent sling operator veins within the right thigh, followed by microfoam chemical ablation of prominent incompetent varicosities of the right and left leg, followed by sclerotherapy treatment of spider veins. Closure of the 2 large sling operator veins within the right thigh is needed, otherwise patient will continue to develop incompetent enlarged varicosities due to continued elevated pressure from the deep system. Nurse notes, history and physical were reviewed and confirmed, see attached forms. The nurse was present throughout the physical exam and consultation Dictated by: Ancelmo Krishnan M.D. on 02/04/2022 at 14:54 Approved by: Ancelmo Krishnan M.D. on 02/04/2022 at 15:03 Normal [facility] VC VENOUS REFLUX CORINNE LMTon 0 02-04-2022 VC VENOUS REFLUX CORINNE LMT Patient: JOANNA ELIAS Exam Date: 02/04/2022 : 1975 Gender:F Ordering : DR MOE HEREDIA M.D. Admission #: [id number] Family : Order #: [id number] CLICK HERE TO VIEW EXAM RADIOLOGY REPORT PROCEDURE: VEIN CENTER ULTRASOUND VENOUS REFLUX BILATERAL LIMTED COMPARISON: None. INDICATIONS: Pain co-occurrent and due to varicose veins of bilateral legs I83.813 TECHNIQUE: Duplex imaging of the lower extremity to assess the deep and superficial venous system for the presence of deep or superficial venous incompetence and to document the location and severity of disease. The study includes evaluation of the great saphenous vein (GSV), anterior accessory saphenous vein (AASV) and small saphenous vein (SSV). Patient scanned in reverse Trendelenburg and standing. FINDINGS: RIGHT LOWER EXTREMITY: Saphenofemoral Junction Reflux: Yes 7.9mm 3.4 sec GSV: Diam (mm) Reflux/ Time (sec) Proximal Thigh Mid Thigh Distal Thigh Prox Calf Mid Calf Saphenopopliteal Junction Reflux: 5.5mm Yes 0.6 SSV: Proximal Calf 5.5 Yes 1.0 Mid Calf 4.1 No AASV: Proximal Thigh Mid Thigh Distal Thigh Thrombi: No acute or chronic thrombus. Compressibility: Normal. Flow: Deep venous reflux. Preforator: Mid thigh 4.7mm, 0.5s. Dist thigh 8.0 mm, 1.4s. Dist/med calf 2.3mm, 0.4s. Tech Note: Previously treated GSV. Varicosity in distal/medial thigh associated with large sling operator measures 6.9 mm with 3.8s reflux. Varicose vein associated with mid thigh sling operator measures 3.2 mm with 0.5s reflux. Varicosity in right popliteal fossa measures 3.6 mm with 2.4s reflux. Mid/medial calf varicosity measures 4.0 mm with 1.7s reflux. Anterior right knee varicose vein measures 5.0 mm that extends to lateral knee with 2.6s reflux. LEFT LOWER EXTREMITY: Saphenofemoral Junction Reflux: Yes 9.5 mm 2.4 sec GSV: Diam (mm) Reflux/Time (sec) Proximal Thigh Mid Thigh Distal Thigh Prox Calf Mid Calf Saphenopopliteal Junction Relux: 4.9 mm No SSV: Proximal Calf 3.0 No Mid Calf 3.4 Yes 0.3 AASV: Not present Proximal Thigh Mid Thigh Distal Thigh Thrombi: No acute or chronic thrombus. Compressibility: Normal. Flow: Deep venous reflux. Transitional Nurse: Mid/med calf 5.9 mm, 1.2s. Tech Note: Previously treated GSV. Varicosity that runs along the medial thigh in area of GSV measures 8.4 mm proximal thigh with 1.0s reflux. Medial knee varicosity measures 3.1mm with 3.6s reflux. Varicose vein distal/medial calf measures 3.2mm with 0.5s reflux. Posterior/proximal calf varicose vein measures 3.3 mm, 0.6s reflux. CONCLUSION: 1. Right lower extremity incompetent branch saphenous varicosities secondary to 2 large sling operator veins 1 within midthigh in 1 distal thigh. A smaller perforators present within the distal medial calf. 2. Left lower extremity incompetent branch saphenous varicosities. Dictated by: Ancelmo Krishnan M.D. on 02/04/2022 at 14:29 Approved by: Ancelmo Krishnan M.D. on 02/04/2022 at 14:53 Normal [facility] No Panel Informationon 12-17 Normal [employer] Work Phone: US PELVIS TRANSABDOMINAL WIT H TRANSVAGINALon 12-17-2021 US PELVIS TRANSABDOMINAL WITH TRANSVAGINAL Patient Name: JOANNA ELIAS STUDY: US PELVIS TRANSABDOMINAL WITH TRANSVAGINAL; 12/17/2021 7:14 pm INDICATION: Encounter for screening for malignant neoplasm of ovary. COMPARISON: None. ACCESSION NUMBER(S): [id number] ORDERING CLINICIAN: SYDNI MARIANO TECHNIQUE: Multiple multiplanar static cisneros scale, color and spectral waveform sonographic images of the pelvis were obtained. Transabdominal and endovaginal ultrasound was performed. FINDINGS: UTERUS: The uterus is 8.9 x 4.2 x 5.2 cm. No definite fibroids. ENDOMETRIUM: The endometrial stripe is 8 mm and grossly unremarkable. RIGHT ADNEXA: The right ovary is 21 x 17 x 22 mm and grossly unremarkable. LEFT ADNEXA: The left ovary is 21 x 14 x 23 mm and grossly unremarkable. Preserved Doppler flow to both ovaries. CUL DE SAC: No free fluid. IMPRESSION: 1. Negative pelvic ultrasound. Electronically signed by: FILIPPO FERGUSON MD Normal [facility] - Cytologyon 05-14 Cytology report Cyto stain.thin prep Doc (Cvx/Vag) [employer] Work Phone: [employer]PERVISOR - Office Visiton [phone] [employer]PER[employer] - Office Visit Diagnoses/Problems Assessed Cervical cancer screening (V76.2) (Z12.4) Screening for HPV (human papillomavirus) (V73.81) (Z11.51) Screening for ovarian cancer (V76.46) (Z12.73) Orders PAP OPTICIAN, Cytology; Status:In Progress - Specimen/Data Collected,Retrospectiv e Authorization; Done: 01Jun2021 Last Menstrual Period (LMP): : May 23, 2021 PAP - Site : CERVICAL Cytology Order : ThinPrep PAP, Screening, HPV All Interp - Include Genotyping Ultrasound Pelvis Transabdominal With Transvaginal; Status:Hold For - Scheduling; Requested for:01Jun2021; Radiologist to Determine Optimal Study : Y What are the patient's signs and symptoms? : Grandmother of ovarian cancer Patient Discussion/Summary Annual A pap and HPV done per her request. A mammogram recently normal. A pelvic u/s done to screen for ovarian cancer. Refill has already been done recently. Follow up in 1 year. Provider Impressions Annual A pap and HPV done per her request. A mammogram recently normal. A pelvic u/s done to screen for ovarian cancer. Refill has already been done recently. Follow up in 1 year. Chief Complaint patient here for her yearly patient had Pfizer vaccine for covid had normal mammogram in March 2021 Adult Risk ScreeningThere are no spiritual/cultural practices/values/needs that are important to know Initial Fall Risk Screening: JOANNA has not fallen in the last 6 months. Depression/Suicide Screening: During the past 2 weeks, the patient has not felt down, depressed or hopeless. During the past 2 weeks, the patient has not felt little interest or pleasure in doing things. She does not have a risk of suicide. She has not had thoughts of harming others. History of Present Illness 45 y.o. ( family history of ovarian cancer with regular but heavy and painful periods for which she gets limited # of Vicodin monthly here for yearly. She is eventually planning to have hysterectomy once she is through natural menopause. Review of Systems Constitutional: no fever, no chills, no recent weight gain, no recent weight loss and no fatigue. Eyes: no eye pain, no vision problems and no dryness of the eyes. ENT: no hearing loss, no nosebleeds and no sinus congestion. Cardiovascular: no chest pain, no palpitations and no orthopnea. Respiratory: no shortness of breath, no cough and no wheezing. Gastrointestinal: no abdominal pain, no constipation, no nausea, no diarrhea and no vomiting. Genitourinary: dysmenorrhea, but no dysuria, no urinary incontinence, no vaginal dryness, no vaginal itching, no dyspareunia, no pelvic pain, no sexual problems, no change in urinary frequency, no vaginal discharge, no unexplained vaginal bleeding and no lesion/sore. Musculoskeletal: no back pain, no joint swelling and no leg edema. Integumentary: no rashes, no skin lesions, no nipple discharge, no breast pain and no breast lump. Neurological: no headache, no numbness and no dizziness. Psychiatric: no sleep disturbances, no anxiety and no depression. Endocrine: no hot flashes, no loss of hair and no hirsutism. Hematologic/Lymphatic: no swollen glands, no tendency for easy bleeding and no tendency for easy bruising. All other systems have been reviewed and are negative for complaint. 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.7) Influenza vaccination administered at current visit (V04.81) (Z23) Mixed hyperlipidemia (272.2) (E78.2) Screening for HPV (human papillomavirus) (V73.81) (Z11.51) Visit for screening mammogram (V76.12) (Z12.31) Vitamin D deficiency (268.9) (E55.9) Women's annual routine gynecological examination (V72.31) (Z01.419) Past Medical History Problems History of hyperlipidemia (V12.29) (Z86.39) History of Low vitamin D level (790.6) (R79.89) History of Pelvic pain in female (625.9) (R10.2) History of Varicose veins of legs (454.9) (I83.93) Surgical History Problems History of Varicose vein ligation Family History Father Family history of leukemia (V16.6) (Z80.6) Maternal Grandmother Family history of malignant neoplasm of breast (V16.3) (Z80.3) Family history of malignant neoplasm of ovary (V16.41) (Z80.41) Paternal Grandmother Family history of malignant neoplasm of ovary (V16.41) (Z80.41) Aunt Family history of malignant neoplasm of breast (V16.3) (Z80.3) Social History Problems Daily caffeine consumption Exercises regularly Feels safe at home No tobacco/smoke exposure Occasional alcohol use History of Occasional alcohol use Sexually active Single Allergies Medication Penicillins Recorded By: Rony Mariano; 08/02/2019 1:1 (more content not included)... Normal [employer] Tobacco Screening.on Last menstrual period start date 23May2021 [employer] Work Phone: Tobacco use status [facility] b) No [employer] Work Phone: DIGITAL MAMM SCREENING W/ TO Ferreira 03-27-2021 DIGITAL MAMM SCREENING W/ AKBAR Patient Name: JOANNA ELIAS STUDY: DIGITAL MAMM SCREENING W/ AKBAR; 03/27/2021 3:31 pm ACCESSION NUMBER(S): [id number] ORDERING CLINICIAN: KAMRON ROBB INDICATION: Screening. COMPARISON: Multiple prior examinations dating back to 04/12/2017 and 10/03/2019. FINDINGS: 2D and tomosynthesis images were reviewed at 1 mm slice thickness. Breast density: Scattered areas of fibroglandular density. No suspicious masses or calcifications are identified. IMPRESSION: No mammographic evidence of malignancy. BI-RADS CATEGORY: BI-RADS category 1-Negative. Recommendation: Follow up routine screening mammogram in 1 year. For any future breast imaging appointments, please call [phone] ([phone]). Electronically signed by: SHARI REYES MD Normal [facility] Mamm - Screening Mammogram w / Tomosynthesison 03-27-2021 MG Breast Screening Normal MP-Ga rrettsvi [facility]-1072 4 Work Phone: Mamm - Screening Mammogram w / Tomosynthesison 10-03-2019 MG Breast screening Interpreted by: PRANAY RICKS10/03/19 15:31MRN: [id number] Name: JOANNA ELIAS STUDY:DIGITAL MAMM SCREENING W/ AKBAR; 10/03/2019 12:18 pm ORDERING CLINICIAN:KAMRON ROBB INDICATION:Screening. Family history of breast cancer with her maternal auntdiagnosed. Family history of ovarian carcinoma with her paternalgrandmother diagnosed. COMPARISON:04/12/2017 FINDINGS:2D and tomosynthesis images were reviewed at 1 mm slice thickness. There are areas of scattered fibroglandular tissue. No suspiciousmasses or calcifications are identified. IMPRESSION:No mammographic evidence of malignancy. BI-RADS CATEGORY:Category: 1 - Negative.Recommendatio n: 1 Year Screening. For any future breast imaging appointments, please call [phone]). Patient letter sent SNORM Electronically signed by: LILLIAN RICKS 10/03/19 15:31 [facility] 4 Work Phone: EDUARDO/MAMMO SCRN DIGIT BILon 0 04-12-2017 Bilirubin (total) t Name: ARI ELIASTUDY:; 04/12/2017 3:40 pmINDICATION:Screening .COMPARISON:None.ACCES NIALL NUMBER(S):[id number] CLINICIAN:SYDNI VEGA:The breast tissue is heterogeneously dense, which may obscure small masses.No suspicious masses or calcifications are identified. There has been nosignificant change.This study was interpreted with CAD.IMPRESSION:No mammographic evidence of malignancy.BI-RADS CATEGORY:Category: 1 - Negative.Recommendatio n: 1 Year Screening.Dictated by:Electronically Signed by: Yosef Ramos IIIElectronically Signed on: 04/12/2017 4:01 PM Normal [facility] Vital Signs Date Time Vital Sign Value Performing Clinician Facility 02-13-2024 14:39-0400 Body height 172.7 cm Kamron Robb MD Work Phone: [facility] 02-13-2024 14:39-0400 Body mass index (BMI) [Ratio] 30.96 kg/m2 Kamron Robb MD Work Phone: [facility] 02-13-2024 14:39-0400 Body weight 92.35 kg Kamron Robb MD Work Phone: [facility] 02-13-2024 14:39-0400 Diastolic blood pressure 82 mm[Hg] Kamron Robb MD Work Phone: [facility] 02-13-2024 14:39-0400 Heart rate 82 /min Kamron Robb MD Work Phone: [facility] 02-13-2024 14:39-0400 SaO2% (BldA) [Mass fraction] 98 % Kamron Robb MD Work Phone: [facility] 02-13-2024 14:39-0400 Systolic blood pressure 138 mm[Hg] Kamron Robb MD Work Phone: [facility] 04-12-2023 13:05-0400 Body height 172.72 cm Kamron Mike Radha Work Phone: [facility] Work Phone: 04-12-2023 13:05-0400 Body mass index (BMI) [Ratio] 30.77 kg/m2 Kamrontiffanie Wrentennighat Work Phone: [facility] Work Phone: 04-12-2023 13:05-0400 Body surface area Derived from formula 2.05 m2 Kamron H Bittence Work Phone: [facility] Work Phone: 04-12-2023 13:05-0400 Body weight 91.8 kg Kamron H Bittence Work Phone: [employer] Work Phone: 04-12-2023 13:05-0400 Diastolic blood pressure 84 mm[Hg] Kamron H Bittence Work Phone: Addie Christie Work Phone: 04-12-2023 13:05-0400 Systolic blood pressure 138 mm[Hg] Kamron H Bittence Work Phone: [employer] Work Phone: 04-12-2023 13:05-0400 2 1 Kamron H Bittence Work Phone: [employer] Work Phone: Comment on above: GRAV 04-12-2023 13:05-0400 1 1 Kamron H Bittence Work Phone: [employer] Work Phone: Comment on above: PARA 06-01-2021 14:57-0400 Body height 171.45 cm Kamorn H Bittence Work Phone: [employer] Work Phone: 06-01-2021 14:57-0400 Body mass index (BMI) [Ratio] 31.63 kg/m2 Kamron H Bittence Work Phone: [employer] Work Phone: 06-01-2021 14:57-0400 Body surface area Derived from formula 2.05 m2 Kamron H Bittence Work Phone: [employer] Work Phone: 06-01-2021 14:57-0400 Body weight 92.99 kg Kamron H Bittence Work Phone: [employer] Work Phone: 06-01-2021 14:57-0400 Diastolic blood pressure 82 mm[Hg] Kamron H Bittence Work Phone: [employer] [facility] Work Phone: 06-01-2021 14:57-0400 Systolic blood pressure 144 mm[Hg] Kamron Robb Work Phone: [employer] Christie Work Phone: 06-01-2021 14:57-0400 2 1 Kamron Robb Work Phone: [employer] Christie Work Phone: Comment on above: GRAV 06-01-2021 14:57-0400 1 1 Kamron Robb Work Phone: [employer] Work Phone: Comment on above: PARA Encounters Encounter Date Encounter Type Care Provider Facility Start: 02-13-2024 End: 02-13-2024 ambulatory [facility] Ambulatory Start: 02-13-2024 End: 02-13-2024 Encounter for general adult medical examination without abnormal findings [facility]ulatory Start: 02-13-2024 End: 02-13-2024 Patient encounter status Kamron Robb MD Work Phone: [facility] Work Phone: Start: 02-13-2024 End: 02-13-2024 Periodic preventive med est patient 40-64yrs Kamron Robb MD Work Phone: [facility] Comment on above: Visit for screening mammogram (Primary Dx); Routine general medical examination at a health care facility; Gastroesophageal reflux disease with esophagitis without hemorrhage; Colon cancer screening Start: 04-28-2023 Chart Update Kamron ramirez Work Phone: [employer] [facility] Work Phone: Start: 04-12-2023 Periodic preventive med est patient 40-64yrs Kamron Robb Work Phone: [employer] Work Phone: Start: 04-12-[address] Kamron Robb Facility:[facility] Start: 02-08-[address] MOE HEREDIA [facility] y:H1 Start: 12-27-2022 End: 12-28-[address] MOE HEREDIA Facility:[facility]1 Start: 12-16-2022 End: 12-17-[address] MOE HEREDIA Facility:[facility] Start: 02-04-2022 End: 02-05-[address] MOE HEREDIA Facility:[facility] Start: 12-18-2021 Chart Update Kamron Mckeon Bitt ence Work Phone: [facility] Work Phone: Start: 07-16-2021 AUDIT Kamron Wrent ence Work Phone: [facility] Work Phone: Start: 06-08-2021 Chart Update Kamron Mckeon Bitt ence Work Phone: [facility] Work Phone: Start: 06-01-2021 Periodic preventive med est patient 40-64yrs Kamron Robb Work Phone: [facility] Work Phone: Start: 05-20-2021 AUDIT Kamron Mike Bitt ence Work Phone: [facility] Work Phone: Start: 03-31-2021 Chart Update Kamron H Bitt ence Work Phone: [facility] Work Phone: Start: 03-18-2021 AUDIT Kamron Mike Bitt ence Work Phone: [facility] Work Phone: Start: 04-14-2020 Patient encounter procedure Kamron Wrentennighat [facility] Work Phone: Start: 03-04-2020 Patient encounter procedure Kamron Bittence [facility] Work Phone: Start: 08-28-2019 Patient encounter procedure Kamron Robb [facility] Work Phone: Start: 08-02-2019 Patient encounter procedure Kamron Robb [facility] Work Phone: Start: 07-10-2019 Patient encounter procedure Kamron Robb [facility] Work Phone: Start: 04-12-2017 End: 04-12-2017 Ambulatory [facility] Patient encounter procedure Kamron Robb Work Phone: [facility] Work Phone: Procedures Date Procedure Procedure Detail Performing Clinician Start: 04-12-2023 Microscopic observat ion [Identifier] in Cervix by Cyto stain Kamron Robb MD Work Phone: Start: 03-27-2021 Mammography Kamron christianson MD Work Phone: Start: 08-28-2019 Surgical Pathology Millie Robb Start: 07-10-2019 Lipid 1996 panel - S romero or Plasma Kamron Robb MD Work Phone: Ligation of varicose vein Mario Robb Plan of Treatment Date Care Activity Detail Author Start: 2027 Zoster Vaccines (1 of 2) Zoste r Vaccines (1 of 2) [facility] Start: 04-12-2026 Screening for malign ant neoplasm of cervix [facility] Start: 07-10-2024 Lipid panel Lipid Panel [facility] Start: 05-13-2024 Influenza vaccination Influenz a Vaccine (Season Ended) [facility] Start: 02-13-2024 End: 02-12-2025 Comprehensive metabolic 2000 panel - Serum or Plasma [facility] Work Phone: Comment on above: Expected: 02/13/2024 (Approximate), Expires: 02/12/2025 Start: 02-13-2024 End: 04-14-2025 DBT Breast - bilateral BI mammo bilateral screening tomosynthesis Imaging Routine Visit for screening mammogram Expected: 02/13/2024, Expires: 04/14/2025 [facility] Service Area Work Phone: Comment on above: Expected: 02/13/2024 , Expires: 04/14/2025 Start: 02-13-2024 End: 02-12-2025 Hemoglobin A1c/Hemoglobin.total in Blood [facility] Work Phone: Comment on above: Expected: 02/13/2024 (Approximate), Expires: 02/12/2025 Start: 02-13-2024 End: 02-12-2025 Lipid 1996 panel - Serum or Plasma [facility] Work Phone: Comment on above: Expected: 02/13/2024 (Approximate), Expires: 02/12/2025 Start: 02-13-2024 End: 02-12-2025 TSH with reflex to Free T4 if abnormal [facility] Work Phone: Comment on above: Expected: 02/13/2024 (Approximate), Expires: 02/12/2025 Start: 05-13-2023 COVID-19 Vaccine ( season) COVID-19 Vaccine ( season) [facility] Start: 03-27-2022 Screening for malign ant neoplasm of breast Mammogram [facility] Start: 06-01-2021 Patient encounter procedure ANNUAL, Provider: Sydni Mariano, Status: Pen, Time: 3:00 PM [facility] Work Phone: Start: 03-31-2021 Patient encounter procedure ANNUAL, Provider: Sydni Mariano, Status: Connor, Time: 10:40 AM [facility] Work Phone: Start: 1999 DTaP/Tdap/Td Vaccine s (1 - Tdap) DTaP/Tdap/Td Vaccines (1 - Tdap) [facility] Start: 1998 Screening for malign ant neoplasm of cervix HPV/Cotest [facility] Start: 1996 Hepatitis B Vaccines (1 of 3 - 19+ 3-dose series) Hepatitis B Vaccines (1 of 3 - 19+ 3-dose series) [facility] Start: 1995 [facility] Start: 1978 MMR Vaccines (1 of 1 - Standard series) MMR Vaccines (1 of 1 - Standard series) [facility] Start: 1977 HIV screening HIV Screening [facility] Start: 1977 Screening for malign ant neoplasm of colon [facility] Start: 1977 Yearly Adult Physical Yearly Adult P hysical [facility] Immunizations Immunization Date Immunization Notes Care Provider Fa cinthia 07-10-2022 influenza virus vaccine, unspecified formulation Kamron Robb MD Work Phone: [facility] Work Phone: 07-10-2019 influenza, injectabl e, quadrivalent, contains preservative; Translations: [Flulaval Quadrivalent Intramuscular Suspension] Kamron Robb -[facility] Work Phone: Comment on above: Series: Payers Date Payer Category Payer Unknown 2022 Unknown [id number] 1977 Unknown [id number] 2.16.84 [id number] 1977 Unknown [id number] 2.16.84 [id number] 1977 Unknown [id number] 2.16.84 [id number] 1977 Unknown [id number] 2.16.84 [id number] 1977 Unknown [id number] 2.16. [id number] 1977 Unknown [id number] 2.16. [id number] 1977 Unknown [id number] 2.16.8 [id number] 1959 Unknown [id number] Private Health Insurance [id number] Unknown [id number] Social History Date Type Detail Facility Assertion Unknown if ever smoked [place] [address] Work Phone: Start: 02-13-2024 End: 08-02-2019 No tobacco/smoke exposure No tobacco/smoke exposure [facility] Work Phone: Start: 02-13-2024 Tobacco smoking stat us NHIS Never smoked tobacco [facility] Work Phone: Start: 02-13-2024 Tobacco use and exposure Smokeless tobacco non-user [facility] Work Phone: Start: 02-13-2024 Alcoholic beverage intake Current drinker of alcohol (finding) [facility] Work Phone: Start: 02-13-2024 Tobacco use panel [facility] Work Phone: Start: 1975 Sex assigned at Not on file [facility] Work Phone: Start: 02-03-2024 End: 02-13-2024 Exposure to SARS-CoV-2 (event) Not sure [facility] Functional Status Date Assessment Result Facility NEGATED: Highlighted row Functional performance Functional status health issues are not documented Disease [place] [address] Work Phone: Mental Status Date Assessment Result Facility NEGATED: Highlighted row Cognitive function [Interpretation] Cognitive status health issues are not documented Disease [place] [address] Work Phone: History of Present illness Narrative 02-13-2024 Kamron Robb MD - 02/13/2024 2:20 PM EDT Note Date & Type Note Facility 02-13-2024 History of Present illness Narrative Subjective Joanna A Blewitt is a 48 y.o. female and is here for a comprehensive physical exam. The patient reports no problems. 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 One son 25 [employer], 2016. Now in monogamous relationship, weight up a bit Last physical: Changes no Concerns no Dentist no Vision yes Hearing Problems no Diet yes Exercise yes Alcohol no Drugs no Social History Tobacco Use Smoking Status Never Smokeless Tobacco Never Do you take any herbs or supplements that were not prescribed by a doctor? No Are you taking calcium supplements? no Are you taking aspirin daily? no Nexium daily. Hiatal hernia noted on X-ray. History: LMP: No LMP recorded. Menopause at perimenopause years Last pap date: 2023 Abnormal pap? no : 1 Para: 1 Do you have pain that bothers you in your daily life? no Review of Systems All other systems reviewed and are negative. Objective Physical Exam Vitals reviewed. Constitutional: Appearance: Normal appearance. HENT: Head: Normocephalic and atraumatic. Right Ear: Tympanic membrane normal. Left Ear: Tympanic membrane normal. Nose: Nose normal. Mouth/Throat: Mouth: Mucous membranes are moist. Pharynx: Oropharynx is clear. Eyes: Extraocular Movements: Extraocular movements intact. Conjunctiva/sclera: Conjunctivae normal. Pupils: Pupils are equal, round, and reactive to light. Cardiovascular: Rate and Rhythm: Normal rate and regular rhythm. Pulses: Normal pulses. Heart sounds: Normal heart sounds. Pulmonary: Effort: Pulmonary effort is normal. Breath sounds: Normal breath sounds. Abdominal: General: Abdomen is flat. Bowel sounds are normal. Palpations: Abdomen is soft. Musculoskeletal: General: Normal range of motion. Cervical back: Normal range of motion and neck supple. Skin: General: Skin is warm and dry. Capillary Refill: Capillary refill takes less than 2 seconds. Neurological: General: No focal deficit present. Mental Status: She is alert and oriented to person, place, and time. Psychiatric: Mood and Affect: Mood normal. Behavior: Behavior normal. Assessment/Plan Healthy female exam. 48 year old female who is perimenopausal, pulse and blood pressure vary and anxiety is a bit worse. Plan to order labwork, and mammogram and well as refer to [place] for EGD and colon. 1. Annual exam today. 2. Patient Counseling: --Nutrition: Stressed importance of moderation in sodium/caffeine intake, saturated fat and cholesterol, caloric balance, sufficient intake of fresh fruits, vegetables, fiber, calcium, iron, and 1 mg of folate supplement per day (for females capable of ). --Discussed the issue of estrogen replacement, calcium supplement, and the daily use of baby aspirin. --Exercise: Stressed the importance of regular exercise. --Substance Abuse: Discussed cessation/primary prevention of tobacco, alcohol, or other drug use; driving or other dangerous activities under the influence; availability of treatment for abuse. --Sexuality: Discussed sexually transmitted diseases, partner selection, use of condoms, avoidance of unintended and contraceptive alternatives. --Injury prevention: Discussed safety belts, safety helmets, smoke detector, smoking near bedding or upholstery. --Dental health: Discussed importance of regular tooth brushing, flossing, and dental visits. --Immunizations reviewed. --Discussed benefits of screening colonoscopy. --After hours service discussed with patient 3. Discussed the patient's BMI with her. The BMI is in the acceptable range. 4. Follow up in one year documented in this encounter [facility] Work Phone: Instructions 02-13-2024 Patient Instructions Note Date & Type Note Facility 02-13-2024 Instructions Kamron Robb MD - 02/13/2024 2:20 PM EDT Assessment/Plan Healthy female exam. 48 year old female who is perimenopausal, pulse and blood pressure vary and anxiety is a bit worse. Plan to order labwork, and mammogram and well as refer to [place] for EGD and colon. 1. Annual exam today. 2. Patient Counseling: --Nutrition: Stressed importance of moderation in sodium/caffeine intake, saturated fat and cholesterol, caloric balance, sufficient intake of fresh fruits, vegetables, fiber, calcium, iron, and 1 mg of folate supplement per day (for females capable of ). --Discussed the issue of estrogen replacement, calcium supplement, and the daily use of baby aspirin. --Exercise: Stressed the importance of regular exercise. --Substance Abuse: Discussed cessation/primary prevention of tobacco, alcohol, or other drug use; driving or other dangerous activities under the influence; availability of treatment for abuse. --Sexuality: Discussed sexually transmitted diseases, partner selection, use of condoms, avoidance of unintended and contraceptive alternatives. --Injury prevention: Discussed safety belts, safety helmets, smoke detector, smoking near bedding or upholstery. --Dental health: Discussed importance of regular tooth brushing, flossing, and dental visits. --Immunizations reviewed. --Discussed benefits of screening colonoscopy. --After hours service discussed with patient 3. Discussed the patient's BMI with her. The BMI is in the acceptable range. 4. Follow up in one year documented in this encounter [facility] Work Phone: Clinical Note 04-12-2023 Note Date & Type Note Facility 04-12-2023 Note 17 Date of Procedure: 04/12/2023 Pathologist: [facility], Cytology Date Reported: 04/21/2023 Date Received: 04/12/2023 Submitting Physician: SYDNI MARIANO MD FINAL CYTOLOGICAL INTERPRETATION A. THINPREP PAP CERVICAL: Specimen adequacy: SATISFACTORY FOR EVALUATION. Quality Indicator: Endocervical/transformation zone component is present. General Categorization: NEGATIVE FOR INTRAEPITHELIAL LESION OR MALIGNANCY. HIGH RISK HPV TEST RESULT: HPV GENOTYPE 16 NEGATIVE HPV GENOTYPE 18 NEGATIVE HPV GENOTYPE OTHER NEGATIVE Reference Range: Negative Slide(s) initially screened by a Director Social at [facility], [address] [place] [address] QC review performed at [facility], [address] [place] [id number] Testing for high-risk (HR) type of human papilloma virus (HPV) is performed by the Michael fiorella HPV Test. The fiorella HPV Test is a qualitative polymerase chain reaction that amplifies DNA of HPV16, HPV18 and 12 other high-risk HPV types (31, 33, 35, 39, 45, 51, 52, 56, 58, 59, 66, and 68) associated with cervical cancer and its precursor lesions. A positive result indicates the presence of HPV DNA due to one or more of the 14 genotypes: 16, 18, 31, 33, 35, 39, 45, 51, 52, 56, 58, 59, 66, and 68. Negative results indicate HPV DNA concentrations are undetectable or below the pre-set threshold for detection. False negative results may be associated with unoptimized sampling. A negative HR HPV result does not exclude the possibility of future cytologic HSIL or underlying CIN2-3 or cancer. This test is approved for cervical specimens by the [place] Food and Drug Administration. Results of this test should be interpreted in conjunction with the patient?s Pap test results. Please refer to ASC current guidelines for the use of HPV DNA testing, result interpretation, and patient management. The performance of this test was verified by the Molecular Diagnostic Laboratory at [facility]. The lab is certified under the Clinical Laboratory Amendments of 1988 (CLIA 88) as qualified to perform high complexity clinical laboratory testing. This specimen has been analyzed by the Pac[employer] BiopharmaceuticalsPrep Imaging System ([employer] an automated imaging and review system, which assists the laboratory in evaluating cells on ThinPrep Pap tests. Following automated imaging, selected cartwright from every slide were reviewed by a radiotelegraph operator and/or pathologist. Electronically Signed Out By [facility], Cytology//JMXena/LSM By the signature on this report, the individual or group listed as making the Final Interpretation/Diagnosis certifies that they have reviewed this case. Diagnostic interpretation performed at [facility] [address] [place] [address] Educational Note: Cervical cytology is a screening procedure primarily for squamous cancers and precursors and has associated false-negative and false-positive results as evidenced by published data. Your patient?s test should be interpreted in this context, together with patient?s history and clinical findings. Regular sampling and follow-up of unexplained clinical signs and symptoms are recommended to minimize false negative results. Clinical History Date of Last Menstrual Period: 4 weeks ago Other Clinical Conditions: COTEST HPV(Genotype) except for ASC-H, HSIL, Carcinoma - Include HPV Genotype testing Clinical Diagnosis History: Cervical cancer screening - (Z12.4); Colon cancer screening - (Z12.11); Screening for HPV (human papillomavirus) - (Z11.51) Source of Specimen A: THINPREP PAP CERVICAL [facility] Department of Pathology [address] [place] [address] [facility] Comment on above: Performed By: #### C #### [facility] Cytology [address] [facility] [address] Clinical Note 06-01-2021 Note Date & Type Note Facility 06-01-2021 Note 18 Date of Procedure: 06/01/2021 Pathologist: [facility], Cytology Date Reported: 06/08/2021 Date Received: 06/02/2021 Submitting Physician: SYDNI MARIANO MD FINAL CYTOLOGICAL INTERPRETATION A. THINPREP PAP Cervical / Endocervical: Specimen adequacy: SATISFACTORY FOR EVALUATION. Quality Indicator: Endocervical/transformation zone component is present. General Categorization: NEGATIVE FOR INTRAEPITHELIAL LESION OR MALIGNANCY. HIGH RISK HPV TEST RESULT: HPV GENOTYPE 16 NEGATIVE HPV GENOTYPE 18 NEGATIVE HPV GENOTYPE OTHER NEGATIVE Reference Range: Negative Slide(s) initially screened by a Director Social at [facility], [address] [place] [address] Testing for high-risk (HR) type of human papilloma virus (HPV) is performed by the Michael fiorella HPV Test. The fiorella HPV Test is a qualitative polymerase chain reaction that amplifies DNA of HPV16, HPV18 and 12 other high-risk HPV types (31, 33, 35, 39, 45, 51, 52, 56, 58, 59, 66, and 68) associated with cervical cancer and its precursor lesions. A positive result indicates the presence of HPV DNA due to one or more of the 14 genotypes: 16, 18, 31, 33, 35, 39, 45, 51, 52, 56, 58, 59, 66, and 68. Negative results indicate HPV DNA concentrations are undetectable or below the pre-set threshold for detection. False negative results may be associated with unoptimized sampling. A negative HR HPV result does not exclude the possibility of future cytologic HSIL or underlying CIN2-3 or cancer. This test is approved for cervical specimens by the [place] Food and Drug Administration. Results of this test should be interpreted in conjunction with the patient?s Pap test results. Please refer to ASCCP current guidelines for the use of HPV DNA testing, result interpretation, and patient management. The performance of this test was verified by the [facility] Laboratory at [facility]. The lab is certified under the Clinical Laboratory Amendments of 1988 (CLIA 88) as qualified to perform high complexity clinical laboratory testing. Electronically Signed Out By [facility], Cytology//LSM By the signature on this report, the individual or group listed as making the Final Interpretation/Diagnosis certifies that they have reviewed this case. Educational Note: Cervical cytology is a screening procedure primarily for squamous cancers and precursors and has associated false-negative and false-positive results as evidenced by published data. Your patient?s test should be interpreted in this context, together with patient?s history and clinical findings. Regular sampling and follow-up of unexplained clinical signs and symptoms are recommended to minimize false negative results. Clinical History Date of Last Menstrual Period: May 23, 2021 Other Clinical Conditions: HPV Test for All Interpretations - Include HPV Genotype Clinical Diagnosis History: Cervical cancer screening - (Z12.4); Screening for HPV (human papillomavirus) - (Z11.51) Source of Specimen A: THINPREP PAP Cervical / Endocervical [facility] Department of Pathology [address] [place] [id number] [facility] History of Present illness Narrative 04-13-2019 Note Date & Type Note Facility 04-13-2019 History of Presen t illness Narrative 47-year-old G1, P1 here for yearly exam. 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 She does have. Which are still regular mild to moderate in the flow and still has some cramping but she says she takes [id number] Aleve and just tough things out through. [facility] Work Phone: Evaluation note Note Date & Type Note Facility Evaluation note Diagnosis Visit for screening mammogram- Primary Routine general medical examination at a health care facility Gastroesophageal reflux disease with esophagitis without hemorrhage Colon cancer screening Special screening for malignant neoplasms, colon documented in this encounter [facility] Work Phone: History of Present illness Narrative Note Date & Type Note Facility History of Present illness Narrative 45 y.o. ( family history of ovarian cancer with regular but heavy and painful periods for which she gets limited # of Vicodin monthly here for yearly. She is eventually planning to have hysterectomy once she is through natural menopause. [facility] Work Phone: Reason for referral (narrative) Consultation (Routine) - Authorized Note Date & Type Note Facility Reason for referral (narrati ve) Specialty Diagnoses / Procedures Referred By Sherry muro Referred To Contact Gastroenterology Diagnoses Gastroesophageal reflux disease with esophagitis without hemorrhage Colon cancer screening Kamron Robb MD [address] [facility] [address] [place] [address] Rubio Ruby MD [address] [address] Referral ID Status Reason Start Date Expiration Date Visits Requested Visits Authorized [id number] Authorized Specialty Services Required 02/13/2024 02/12/2025 1 1 * Imaging (Routine) - Authorized Specialty Diagnoses / Procedures Referred By Sherry muro Referred To Contact Radiology Diagnoses Visit for screening mammogram Procedures BI mammo bilateral screening tomosynthesis Kamron Robb MD [address] [facility] [address] [place] [address] Referral ID Status Reason Start Date Expiration Date Visits Requested Visits Authorized [id number] Authorized Perform Procedure 02/13/2024 02/12/2025 1 1 [facility] Work Phone: Summary Purpose Family History No Family History Records Found Grandmother Name Dates Details Family history of malignant neoplasm of ovary(V16.41, Z80.41) Status:Active Grandmother Name Dates Details Family history of malignant neoplasm of breast(V16.3, Z80.3) Status:Active Family history of malignant neoplasm of ovary(V16.41, Z80.41) Status:Active Grandmother Name Dates Details Family history of malignant neoplasm of ovary(V16.41, Z80.41) Status:Active aunt Name Dates Details Family history of malignant neoplasm of breast(V16.3, Z80.3) Status:Active Father Name Dates Details Family history of leukemia(V 16.6, Z80.6) Status:Active Unknown Family Member Name Dates Details Family history of malignant neoplasm of ovary: Maternal Grandmother, Paternal Grandmother(V16.41, Z80.41) Status:Active Family history of malignant neoplasm of breast: Maternal Grandmother, Aunt(V16.3, Z80.3) Status:Active Family history of leukemia: Father(V16.6, Z80.6) Status:Active Unknown Family Member Name Dates Details Family history of malignant neoplasm of ovary: Maternal Grandmother, Paternal Grandmother(V16.41, Z80.41) Status:Active Family history of malignant neoplasm of breast: Maternal Grandmother, Aunt(V16.3, Z80.3) Status:Active Family history of leukemia: Father(V16.6, Z80.6) Status:Active Unknown Family Member Name Dates Details Family history of malignant neoplasm of ovary: Maternal Grandmother, Paternal Grandmother(V16.41, Z80.41) Status:Active Family history of malignant neoplasm of breast: Maternal Grandmother, Aunt(V16.3, Z80.3) Status:Active Family history of leukemia: Father(V16.6, Z80.6) Status:Active Unknown Family Member Name Dates Details Family history of malignant neoplasm of ovary: Maternal Grandmother, Paternal Grandmother(V16.41, Z80.41) Status:Active Family history of malignant neoplasm of breast: Maternal Grandmother, Aunt(V16.3, Z80.3) Status:Active Family history of leukemia: Father(V16.6, Z80.6) Status:Active Unknown Family Member Name Dates Details Family history of malignant neoplasm of ovary: Maternal Grandmother, Paternal Grandmother(V16.41, Z80.41) Status:Active Family history of malignant neoplasm of breast: Maternal Grandmother, Aunt(V16.3, Z80.3) Status:Active Family history of leukemia: Father(V16.6, Z80.6) Status:Active Unknown Family Member Name Dates Details Family history of malignant neoplasm of ovary: Maternal Grandmother, Paternal Grandmother(V16.41, Z80.41) Status:Active Family history of malignant neoplasm of breast: Maternal Grandmother, Aunt(V16.3, Z80.3) Status:Active Family history of leukemia: Father(V16.6, Z80.6) Status:Active Unknown Family Member Name Dates Details Family history of malignant neoplasm of ovary: Maternal Grandmother, Paternal Grandmother(V16.41, Z80.41) Status:Active Family history of malignant neoplasm of breast: Maternal Grandmother, Aunt(V16.3, Z80.3) Status:Active Family history of leukemia: Father(V16.6, Z80.6) Status:Active Unknown Family Member Name Dates Details Family history of malignant neoplasm of ovary: Maternal Grandmother, Paternal Grandmother(V16.41, Z80.41) Status:Active Family history of malignant neoplasm of breast: Maternal Grandmother, Aunt(V16.3, Z80.3) Status:Active Family history of leukemia: Father(V16.6, Z80.6) Status:Active Family history of diabetes m ellitus: Mother, Father(V18.0, Z83.3) Status:Active Unknown Family Member Name Dates Details Family history of malignant neoplasm of ovary: Maternal Grandmother, Paternal Grandmother(V16.41, Z80.41) Status:Active Family history of malignant neoplasm of breast: Maternal Grandmother, Aunt(V16.3, Z80.3) Status:Active Family history of leukemia: Father(V16.6, Z80.6) Status:Active Family history of diabetes m ellitus: Mother, Father(V18.0, Z83.3) Status:Active Advance Directives No Advanced Directives Records FoundNo Advanced Directives Records FoundNo Advanced Directives Records FoundNo Advanced Directives Records FoundNo Advanced Directives Records FoundNo Advanced Directives Records FoundNo Advanced Directives Records FoundNo Advanced Directives Records FoundNo Advanced Directives Records Found Chief Complaint patient here for her yearly patient had Pfizer vaccine for covid had normal mammogram in Marchnnual exam Additional Source Comments INFORMATION SOURCE (unrecogn ized section and content) DATE CREATED AUTHOR 03/08/2018 [facility] DATE CREATED AUTHOR AUTHOR'S VINCENTIZ ATYOANA 06/02/2021 [employer] DATE CREATED AUTHOR AUTHOR'S ORGANIZ ATION 06/10/2021 [facility] DATE CREATED AUTHOR AUTHOR'S ORGANIZ ATION 12/23/2021 [facility] DATE CREATED AUTHOR AUTHOR'S ORGANIZ ATION 02/12/2022 [facility] DATE CREATED AUTHOR AUTHOR'S ORGANIZ ATION 01/11/2023 [facility] DATE CREATED AUTHOR AUTHOR'S ORGANIZ ATION 04/22/2023 [facility] DATE CREATED AUTHOR AUTHOR'S ORGANIZ ATION 02/14/2024 [facility] DATE CREATED AUTHOR AUTHOR'S ORGANIZ ATION 02/14/2024 [facility] Reason for Visit (unrecogniz ed section and content) Reason Comments Annual Exam Establish Care Care Teams (unrecognized sec tion and content) [employer] Representative Relationship Specialty Start Date End Date Sydni Mariano MD [address] [place] [address] PCP - Kate ACO PCP 07/13/23 Kamron Robb MD [address] [facility] [address] [place], [place] [id number] PCP - General Family Medicine 02/13/24 FOR RECORDS PERTAINING TO PATIENTS WHO ARE OR HAVE BEEN ENROLLED IN A CHEMICAL DEPENDENCY/SUBSTANCEABUSE PROGRAM, SOME INFORMATION MAY BE OMITTED. This clinical summary was aggregated from multiple sources. Caution should be exercised in using it in the provision of clinical care. This summary normalizes information from multiple sources, and as a consequence, information in this document may materially change the coding, format and clinical context of patient data. In addition, data may be omitted in some cases. CLINICAL DECISIONS SHOULD BE BASED ON THE PRIMARY CLINICAL RECORDS. [employer] provides no warranty or guarantee of the accuracy or completeness of information in this document.
== END 2024-02-16 14:56 | disposition home or self-care (01) ==
LOC: VC 14:55
PROVIDERS: PCP Radiology Diagnostic Radiology; Visit Provider Radiology Diagnostic Radiology
DX: I80.01 Phlebitis and thrombophlebitis of superficial vessels of right lower extremity (principal)
CPT/HCPCS: 93971; G0463